=== PATIENT | female | born 1945 | race Two or more races ===

== ENCOUNTER 2017-10-02 10:30 | Inpatient (IN) | payer OTHER ==
[~2017-10-02] VITALS: Ht 162.6 cm; Wt 69.9 kg
[2017-10-02] MEDS ORDERED: OMEPRAZOLE20 MG PO (14:03)
[2017-10-02] MEDS ORDERED: PECID PO (14:03)
[2017-10-02] MEDS ORDERED: PROLIA60 MG/1 ML SQ (14:04)
[2017-10-02] MEDS ORDERED: ESSENTIAL DAIL1 EACH PO (14:04)
[2017-10-02] MEDS ORDERED: MAGNESIUM30 MG PO (14:04)
[2017-10-02] MEDS ORDERED: MELATONIN5 M1 PO (14:05)
[2017-10-02] MEDS ORDERED: VIT D PO (14:05)
== END 2017-10-12 16:30 | disposition home or self-care (01) | DRG 331 ==
LOC: O/R 10-09 05:59 → SURG 10-09 05:59 → RECOVERY 10-09 10:30 → SURG 10-12 16:30
PROVIDERS: Colon & Rectal Surgery
PROC: 0DJD8ZZ Inspection of Lower Intestinal Tract, Via Natural or Artificial Opening Endoscopic (ICD-10-PCS; 2017-10-09)
PROC: 0DTN4ZZ Resection of Sigmoid Colon, Percutaneous Endoscopic Approach (ICD-10-PCS; principal; 2017-10-09 10:30)
DX: K57.32 Diverticulitis of large intestine without perforation or abscess without bleeding (principal)

== ENCOUNTER 2018-11-15 07:15 | Day surgery (SDC) | payer OTHER ==
[~2018-11-15 07:15] MED LIST: ESSENTIAL DAIL1 EACH PO; MAGNESIUM30 MG PO; MELATONIN5 M1 PO; OMEPRAZOLE20 MG PO; PECID PO; PROLIA60 MG/1 ML SQ; VIT D PO
== END 2018-11-15 13:00 | disposition home or self-care (01) ==
LOC: AMB-ENDOS 07:15 → ADM 13:15 → AMB-ENDOS 13:15
DX: K57.32 Diverticulitis of large intestine without perforation or abscess without bleeding (principal); K64.1 Second degree hemorrhoids

== ENCOUNTER 2024-09-29 12:14 | Emergency (ER) | payer OTHER ==
[~2024-09-29] VITALS: Ht 162.6 cm; Wt 76.7 kg
[2024-09-29] MEDS ORDERED: BARIUM SULFATE 450 ML ORAL.SUSP PO ONE (14:03)
[2024-09-29 14:29] LABS: BASO % 0.8 % (0.1-1.2); EOS # 0.03 (0.04-0.54); EOS % 0.5 % (0.7-7.0); HEMATOCRIT 42.7 % (34.1-44.9); HEMOGLOBIN 14.3 g/dL (11.2-15.7); LYMPH # 1.81 (1.18-3.74); LYMPH % 30.1 % (19.3-53.1); MEAN CORPUSCULAR HEMOGLOBIN 30.9 pg (25.6-32.2); MONO # 0.38 (0.24-0.82); MONO % 6.3 % (4.7-12.5); NEUT # 3.73 (1.56-6.13); NEUT % 62.1 % (34.0-71.1); PLATELET COUNT 278 K/uL (163-369); RED BLOOD COUNT 4.63 M/uL (3.93-5.22); RED CELL DISTRIBUTION WIDTH 13.2 % (11.6-14.4)
[2024-09-29 15:04] LABS: CALCIUM 9.8 mg/dL (8.5-10.1); CREATININE SERUM 0.9 mg/dL (0.55-1.02); GFR 60.09; POTASSIUM 4.22 mEq/L (3.5-5.1)
[2024-09-29 16:29] LABS: URINE APPEARANCE Clear; URINE BILIRRUBIN Negative (NEGATIVE); URINE BLOOD Negative; URINE COLOR Dark Yellow; URINE GLUCOSE Negative (NEGATIVE); URINE LEUKOCYTE Negative; URINE NITRATE Negative; URINE PROTEIN Negative (NEGATIVE); URINE UROBILINOGEN 0.2 E.U./dl
[2024-09-29 16:33] LABS: URINE BACTERIA 69.7 uL (0.0-1933); URINE EPITHELIAL CELLS 11.2 uL (0.0-38.8); URINE RBC 28.2 uL (0.0-20.8); URINE WBC 12.9 uL (0.0-23.2)
[2024-09-29 16:44] LABS: URINE CAST 0.44 uL (0.0-1.40); URINE KETONE 40 (NEGATIVE)
[2024-09-29] MEDS ORDERED: PROTONIX40 MG PO (18:04)
[2024-09-29] MEDS ORDERED: METRONIDAZOLE500 MG PO (18:04)
[2024-09-29] MEDS ORDERED: INTESTINEX680 M1 PO (18:04)
[2024-09-29] MEDS ORDERED: LEVSIN/SL0.125 MG SL (18:04)
[2024-09-29] MEDS ORDERED: CIPRO500 MG PO (18:04)
[2024-09-29] MEDS ORDERED: FAMOTIDINE/PF 20 MG in 0.9 % SODIUM CHLORIDE 8 ML IV PUSH STA (18:05)
[2024-09-29] MEDS ORDERED: KETOROLAC TROMETHAMINE 15 MG VIAL IV ONE (18:15)
[2024-09-29] MEDS ORDERED: KETOROLAC TROMETHAMINE 30 MG VIAL ONE (18:17)
[2024-09-29] MEDS ORDERED: FAMOTIDINE/PF 20 MG/2 ML VIAL ONE (18:17)
== END 2024-09-29 18:31 | disposition home or self-care (01) ==
LOC: ER 12:14
PROVIDERS: Emergency Medicine
DX: R10.9 Unspecified abdominal pain (principal); Z88.0 Allergy status to penicillin
CPT/HCPCS: 36415; 74177; 96365; 99284; J1885; J3490; Q9965